=== PATIENT | female | born 1965 | race Caucasian/White ===

== ENCOUNTER 2018-07-16 14:30 | Emergency (ER) | payer MEDICAID ==
[~2018-07-16] VITALS: Ht 152.4 cm; Wt 54.4 kg
[2018-07-16] MEDS ORDERED: TETRACAINE (PONTOCAINE) TOPICAL 30 ML SOLUTION TP ONE (14:31)
[2018-07-16] MEDS ORDERED: FLUORESCEIN SODIUM 1 MG OPHTHALMIC STRIP OP ONE (14:31)
[2018-07-16 14:47] VITALS: BP_SYST 163
[2018-07-16] MEDS ORDERED: KETOROLAC TROMETHAMINE 60 MG/2 ML VIAL IM ONE (15:45)
[2018-07-16 16:10] VITALS: BP_SYST 163
== END 2018-07-16 16:10 | disposition home or self-care (01) ==
LOC: SED 14:30
DX: H18.822 Corneal disorder due to contact lens, left eye (principal); F17.210 Nicotine dependence, cigarettes, uncomplicated; R03.0 Elevated blood-pressure reading, without diagnosis of hypertension; Z88.0 Allergy status to penicillin; Z71.6 Tobacco abuse counseling
CPT/HCPCS: 96372; 99283; J1885